=== PATIENT | male | born 1960 | race African-American/Black ===

== ENCOUNTER 2017-12-09 20:45 | Emergency (ER) | payer BC ==
[~2017-12-09] VITALS: Ht 170.2 cm; Wt 97.5 kg
[2017-12-09 21:22] VITALS: Ht 170.2 cm; Wt 97.5 kg
[2017-12-10 02:22] VITALS: BP 147/94
== END 2017-12-10 02:22 | disposition home or self-care (01) ==
LOC: ED 20:45
DX: M48.02 Spinal stenosis, cervical region (principal); M48.04 Spinal stenosis, thoracic region; I10 Essential (primary) hypertension
CPT/HCPCS: J1885